=== PATIENT | male | born 1990 | race African-American/Black ===

== ENCOUNTER 2020-07-27 20:38 | Emergency (ER) | payer OTHER | END 2020-07-27 22:00 | LOC: ERS 20:38 | DX: M26.603 Bilateral temporomandibular joint disorder, unspecified (principal); R07.89 Other chest pain; I10 Essential (primary) hypertension; E78.5 Hyperlipidemia, unspecified; J45.909 Unspecified asthma, uncomplicated; Z79.899 Other long term (current) drug therapy | CPT/HCPCS: 71045; 93005 ==